=== PATIENT | male | born 1960 | race Caucasian/White ===

== ENCOUNTER 2019-02-17 13:37 | Emergency (ER) | payer OTHER ==
[~2019-02-17] VITALS: Ht 175.3 cm; Wt 113.4 kg
[~2019-02-17 13:37] MED LIST: AMLO5 PO; EZET10 PO; GEMF600 PO; GLIP10 PO; GLIP5 PO; HYDMOR2 PO; HYDMOR4 PO; IBUP800 PO; LAVAP17G PO; LISI5 PO; MEDICAL MARIJUANA; METF500 PO; Norco 7.5-3251 EACH PO; ONDA4 PO; OXYACE5T PO; OXYC5; PANT40 PO; PIOG15 PO; PROM25 PO; Percocet 5-3251 EACH PO; Prinivil10 MG PO; Protonix40 MG PO; Prozac20 MG; RANI150 PO; SITA100T2 PO; SUCR1SU PO; Zofran Odt8 MG SL; Zofran8 MG PO
[2019-02-17] MEDS ORDERED: Norco 5-325 Ta1 EACH PO (17:50)
== END 2019-02-17 18:00 | disposition home or self-care (01) ==
LOC: ER 13:37
DX: S30.0XXA Contusion of lower back and pelvis, initial encounter (principal); M25.812 Other specified joint disorders, left shoulder; I10 Essential (primary) hypertension; E11.9 Type 2 diabetes mellitus without complications; M54.9 Dorsalgia, unspecified; G89.29 Other chronic pain; Z87.891 Personal history of nicotine dependence; Z79.899 Other long term (current) drug therapy; Z79.84 Long term (current) use of oral hypoglycemic drugs; W10.9XXA Fall (on) (from) unspecified stairs and steps, initial encounter
CPT/HCPCS: 72100; 72220; 73030; 99283-25; A9270-GY

== ENCOUNTER → 2020-04-24 | Outpatient (CLI) | payer OTHER ==
[~2020-04-24] MED LIST changes: +Norco 5-325 Ta1 EACH PO; +Robaxin-750750 MG PO; +Ultram50 MG PO
== END | disposition home or self-care (01) ==
LOC: LAB SHORT 18:15 → LAB 18:15
DX: N48.1 Balanitis (principal)
CPT/HCPCS: 87070; 87205